=== PATIENT | female | born 1935 | race Caucasian/White ===

== ENCOUNTER 2020-07-26 15:23 | Inpatient (IN) ==
[2020-07-26] MEDS ORDERED: Naloxone 0.4 MG/ML INJ IVP PRN (23:49)
[2020-07-27 00:45] LABS: Basophils % 0.5 %; Eosinophils # 0.2 K/mcL (0.0-0.6); Hematocrit 32.2 % (35.3-44.9); Hemoglobin 9.8 g/dL (11.5-15.4); Immature Granulocytes % 0.3 % (0-4); Lymphocytes # 0.7 K/mcL (0.6-4.6); Lymphocytes % 8.5 %; Mean Corpuscular HGB Conc 30.4 g/dL (31.6-35.5); Mean Corpuscular Hemoglobin 29.4 pg (28.0-33.3); Mean Corpuscular Volume 96.7 fL (83.0-100.0); Mean Platelet Volume 11.5 fL (9.4-12.4); Monocytes # 1.1 K/mcL (0.0-1.3); Monocytes % 13.7 %; Neutrophils # 5.8 K/mcL (1.6-8.9); Nucleated Red Blood Cells 0.3 /100 WBC (0); Platelet Count 209 K/mcL (140-400); Red Blood Count 3.33 M/mcL (3.82-4.97); Red Cell Distribution Width 14.1 % (11.5-14.5); White Blood Count 7.7 K/mcL (4.3-11.1)
[2020-07-27 01:03] LABS: Albumin 3.1 g/dL (3.5-5.7); Albumin/Globulin Ratio 1.1 (1.1-2.2); Bilirubin,Total 0.5 mg/dL (0.3-1.0); Calcium 8.2 mg/dL (8.6-10.3); Globulin 2.9 g/dL (2.4-3.5); Potassium 3.8 mEq/L (3.5-5.1)
[2020-07-27] MEDS ORDERED: Furosemide 40 MG/4 ML VIAL IVP ONE (03:14)
[2020-07-27] MEDS ORDERED: Dextrose Gel 15 GM/37.5 ML TUBE PO PRN ×2 (07:05)
[2020-07-27] MEDS ORDERED: *HR* Dextrose 50 % in Water (Vial) 50 ML VIAL IVP PRN (07:05)
[2020-07-27] MEDS ORDERED: D5% in Water 1,000 ML IVC PRN (07:05)
[2020-07-27] MEDS: Insulin LISPRO 300 UNITS/3 ML VIAL SUBQ SCH ×5 (09:49→22:47)
[2020-07-27] MEDS: Apixaban 2.5 MG TABLET PO SCH ×2 (12:02→21:37)
[2020-07-27 17:42] LABS: Calcium 8.8 mg/dL (8.6-10.3); Potassium 4.1 mEq/L (3.5-5.1)
[2020-07-27] MEDS: Metoprolol 100 MG TABLET PO SCH (21:37)
[2020-07-28] MEDS: Acetaminophen 325 MG TABLET PO PRN ×2 (04:02→10:25)
[2020-07-28 05:10] LABS: Bacteria,Urine Few per hpf (None-Few); Bilirubin,Urine Negative (Negative); Blood,Urine Trace (Negative); Budding Yeast,Urine Many per hpf (None Seen); Clarity,Urine Turbid (Clear); Color,Urine Yellow (Yellow); Glucose,Urine (UA) Normal (Normal); Hyaline Casts,Urine Few per lpf (None Seen); Ketones,Urine Negative (Negative); Leukocyte Esterase,Urine Large (Negative); Mucus,Urine Few per lpf (None-Few); Nitrite,Urine Negative (Negative); PH,Urine 6.5 pH Units (5.0-8.0); Protein,Urine 100 mg/dL (Neg-Trace); RBC,Urine 15-30 per hpf (0-3); Specific Gravity,Urine 1.019 (1.010-1.025); Squamous Epithelial Cell,Urine Few per hpf (None-Few); Urobilinogen,Urine Normal (Normal); WBC,Urine TNTC per hpf (0-3)
[2020-07-28 05:21] LABS: VBG HCO3 37 mEq/L (21-27); VBG PCO2 62 mmHg (41-51); VBG PH 7.38 pH Units (7.32-7.42); VBG PO2 147 mmHg (25-50)
[2020-07-28 05:28] LABS: Hematocrit 32.8 % (35.3-44.9); Hemoglobin 9.9 g/dL (11.5-15.4); Mean Corpuscular HGB Conc 30.2 g/dL (31.6-35.5); Mean Corpuscular Hemoglobin 28.9 pg (28.0-33.3); Mean Corpuscular Volume 95.9 fL (83.0-100.0); Mean Platelet Volume 11.8 fL (9.4-12.4); Platelet Count 226 K/mcL (140-400); Red Blood Count 3.42 M/mcL (3.82-4.97); Red Cell Distribution Width 14.1 % (11.5-14.5); White Blood Count 10.2 K/mcL (4.3-11.1)
[2020-07-28 05:46] LABS: % Iron Saturation 6 % (15-50); Iron 27 mcg/dL (50-170); Transferrin 329 mg/dL (203-362)
[2020-07-28 05:59] LABS: Calcium 8.7 mg/dL (8.6-10.3); Thyroid Stimulating Hormone 7.68 mcIU/mL (0.340-5.600)
[2020-07-28 06:02] LABS: Ferritin 29 ng/mL (10-120)
[2020-07-28 06:09] LABS: Folate 12.7 ng/mL (3.0-16.0)
[2020-07-28] MEDS: Apixaban 2.5 MG TABLET PO SCH ×2 (08:27→22:01)
[2020-07-28] MEDS: Metoprolol 100 MG TABLET PO SCH ×2 (08:27→22:01)
[2020-07-28] MEDS: Insulin LISPRO 300 UNITS/3 ML VIAL SUBQ SCH ×4 (08:28→22:07)
[2020-07-28 08:41] LABS: C-Reactive Protein 122 mg/L (Less than 10)
[2020-07-28] MEDS ORDERED: Ferumoxytol 510 MG in 0.9 % Sodium Chloride 100 ML IVPB ONE (13:16)
[2020-07-29] MEDS: Insulin LISPRO 300 UNITS/3 ML VIAL SUBQ SCH ×4 (09:51→20:29)
[2020-07-29] MEDS: Apixaban 2.5 MG TABLET PO SCH ×2 (09:55→20:38)
[2020-07-29] MEDS: Metoprolol 100 MG TABLET PO SCH ×2 (09:55→20:38)
[2020-07-29] MEDS: Acetaminophen 325 MG TABLET PO PRN (16:33)
[2020-07-30 01:42] LABS: Hemoglobin 10.2 g/dL (11.5-15.4); Mean Corpuscular Hemoglobin 28.8 pg (28.0-33.3); Mean Platelet Volume 11.4 fL (9.4-12.4); Platelet Count 221 K/mcL (140-400); Red Blood Count 3.54 M/mcL (3.82-4.97); Red Cell Distribution Width 14.1 % (11.5-14.5); White Blood Count 6.8 K/mcL (4.3-11.1)
[2020-07-30 01:44] LABS: VBG HCO3 34 mEq/L (21-27); VBG PCO2 63 mmHg (41-51); VBG PH 7.34 pH Units (7.32-7.42); VBG PO2 161 mmHg (25-50)
[2020-07-30 02:04] LABS: Calcium 8.6 mg/dL (8.6-10.3); Magnesium 2.3 mg/dL (1.6-2.6); Potassium 4.8 mEq/L (3.5-5.1)
[2020-07-30] MEDS: Insulin LISPRO 300 UNITS/3 ML VIAL SUBQ SCH ×4 (07:25→23:41)
[2020-07-30] MEDS: Apixaban 2.5 MG TABLET PO SCH ×3 (07:36→23:36)
[2020-07-30] MEDS: Metoprolol 100 MG TABLET PO SCH ×3 (07:36→23:36)
[2020-07-30] MEDS ORDERED: 0.9 % Sodium Chloride 1,000 ML IVC SCH ×2 (07:45→16:15)
[2020-07-30] MEDS: Thiamine (B-1) 100 MG in 0.9 % Sodium Chloride 50 ML IVPB SCH (11:56)
[2020-07-30] MEDS: Thiamine (B-1) 100 MG TABLET PO SCH (11:56)
[2020-07-30 14:51] LABS: Sodium, Urine 16.4 mEq/L
[2020-07-30 18:58] LABS: Calcium 8.7 mg/dL (8.6-10.3); Potassium 4.7 mEq/L (3.5-5.1)
[2020-07-31] MEDS: 0.9 % Sodium Chloride 1,000 ML IVC SCH (01:56)
[2020-07-31 02:29] LABS: Calcium 8.7 mg/dL (8.6-10.3); Potassium 5.3 mEq/L (3.5-5.1)
[2020-07-31] MEDS ORDERED: *HR* LORazepam 2 MG/ML VIAL IVP ONE (04:59)
[2020-07-31] MEDS: Apixaban 2.5 MG TABLET PO SCH ×2 (10:34→20:10)
[2020-07-31] MEDS: Insulin LISPRO 300 UNITS/3 ML VIAL SUBQ SCH ×4 (10:34→20:10)
[2020-07-31] MEDS: Thiamine (B-1) 100 MG TABLET PO SCH (10:35)
[2020-07-31] MEDS: Metoprolol 100 MG TABLET PO SCH ×2 (10:35→20:10)
[2020-07-31] MEDS ORDERED: Furosemide 40 MG/4 ML VIAL IVP ONE (10:55)
[2020-07-31] MEDS: Thiamine (B-1) 100 MG in 0.9 % Sodium Chloride 50 ML IVPB SCH (11:10)
[2020-07-31 19:58] LABS: ABG Base Excess 5 mEq/L (-2 to 3); ABG HCO3 35 mEq/L (21-27); ABG Oxygen Saturation 90 % (95-98); ABG PCO2 81 mmHg (35-45); ABG PH 7.25 pH Units (7.32-7.45); ABG PO2 73 mmHg (85-104); ABG TCO2 38 mEq/L (20-26)
[2020-08-01 00:40] LABS: Hematocrit 32.4 % (35.3-44.9); Hemoglobin 9.7 g/dL (11.5-15.4); Mean Corpuscular HGB Conc 29.9 g/dL (31.6-35.5); Mean Corpuscular Hemoglobin 29.4 pg (28.0-33.3); Mean Corpuscular Volume 98.2 fL (83.0-100.0); Mean Platelet Volume 11.1 fL (9.4-12.4); Platelet Count 215 K/mcL (140-400); Red Cell Distribution Width 14.6 % (11.5-14.5)
[2020-08-01 00:57] LABS: Calcium 8.5 mg/dL (8.6-10.3); Magnesium 2.3 mg/dL (1.6-2.6); Potassium 4.5 mEq/L (3.5-5.1)
[2020-08-01 08:07] LABS: ABG Base Excess 8 mEq/L (-2 to 3); ABG HCO3 36 mEq/L (21-27); ABG Oxygen Saturation 93 % (95-98); ABG PCO2 66 mmHg (35-45); ABG PH 7.35 pH Units (7.32-7.45); ABG PO2 73 mmHg (85-104); ABG TCO2 38 mEq/L (20-26)
[2020-08-01] MEDS: Metoprolol 100 MG TABLET PO SCH ×2 (09:23→19:58)
[2020-08-01] MEDS: Insulin LISPRO 300 UNITS/3 ML VIAL SUBQ SCH ×4 (09:23→19:50)
[2020-08-01] MEDS: Apixaban 2.5 MG TABLET PO SCH ×2 (09:23→19:58)
[2020-08-01] MEDS: Thiamine (B-1) 100 MG in 0.9 % Sodium Chloride 50 ML IVPB SCH (09:31)
[2020-08-01] MEDS ORDERED: *HR* Metoprolol 5 MG/5 ML VIAL IVP ONE (11:23)
[2020-08-01] MEDS: Fluconazole 200 MG/100 ML 100 MG/50 ML BAG IVPB SCH (17:19)
[2020-08-01] MEDS ORDERED: Cyanocobalamin (B-12) 1,000 MCG/ML VIAL SQ ONE (19:07)
[2020-08-01] MEDS ORDERED: Iron Sucrose Complex 200 MG in 0.9 % Sodium Chloride 100 ML IVPB ONE (19:07)
[2020-08-01] MEDS ORDERED: Melatonin 3 MG TABLET PO PRN (20:27)
[2020-08-01] MEDS: Patient Taking Own Medication 1 EACH PO SCH (21:19)
[2020-08-01] MEDS ORDERED: *HR* Metoprolol 5 MG/5 ML VIAL IVP PRN (23:25)
[2020-08-02 02:32] LABS: Basophils % 0.3 %; Eosinophils # 0.1 K/mcL (0.0-0.6); Eosinophils % 0.8 %; Hematocrit 33.8 % (35.3-44.9); Hemoglobin 10.3 g/dL (11.5-15.4); Immature Granulocytes % 0.5 % (0-4); Lymphocytes # 0.3 K/mcL (0.6-4.6); Lymphocytes % 5.3 %; Mean Corpuscular HGB Conc 30.5 g/dL (31.6-35.5); Mean Corpuscular Hemoglobin 29.3 pg (28.0-33.3); Mean Corpuscular Volume 96.3 fL (83.0-100.0); Mean Platelet Volume 10.9 fL (9.4-12.4); Monocytes # 0.9 K/mcL (0.0-1.3); Monocytes % 15.1 %; Neutrophils # 4.8 K/mcL (1.6-8.9); Nucleated Red Blood Cells 0.8 /100 WBC (0); Platelet Count 213 K/mcL (140-400); Red Blood Count 3.51 M/mcL (3.82-4.97); Red Cell Distribution Width 14.7 % (11.5-14.5); White Blood Count 6.2 K/mcL (4.3-11.1)
[2020-08-02 02:33] LABS: VBG HCO3 36 mEq/L (21-27); VBG PCO2 70 mmHg (41-51); VBG PH 7.32 pH Units (7.32-7.42); VBG PO2 162 mmHg (25-50)
[2020-08-02 02:51] LABS: Calcium 8.9 mg/dL (8.6-10.3); Magnesium 2.2 mg/dL (1.6-2.6); Potassium 4.2 mEq/L (3.5-5.1)
[2020-08-02] MEDS: Insulin LISPRO 300 UNITS/3 ML VIAL SUBQ SCH ×4 (08:22→20:53)
[2020-08-02] MEDS: Apixaban 2.5 MG TABLET PO SCH (08:55)
[2020-08-02] MEDS: Thiamine (B-1) 100 MG TABLET PO SCH (08:55)
[2020-08-02] MEDS: Metoprolol 100 MG TABLET PO SCH ×2 (08:55→19:52)
[2020-08-02] MEDS: Patient Taking Own Medication 1 EACH PO SCH ×2 (08:56→15:03)
[2020-08-02] MEDS: Fluconazole 200 MG/100 ML 100 MG/50 ML BAG IVPB SCH (08:56)
[2020-08-02] MEDS ORDERED: DilTIAZem CD (24hr) 120 MG CAP.ER.24H PO SCH (09:00)
[2020-08-02 09:14] LABS: Estimated Average Glucose 171 mg/dl; Hemoglobin A1C 7.6 %
[2020-08-02] MEDS ORDERED: Perflutren Lipid Microsphere 1.3 ML in 0.9 % Sodium Chloride 8.7 ML IVP PRN (11:37)
[2020-08-03 01:13] LABS: Basophils % 0.3 %; Eosinophils # 0.1 K/mcL (0.0-0.6); Eosinophils % 1.4 %; Hematocrit 31.5 % (35.3-44.9); Hemoglobin 9.7 g/dL (11.5-15.4); Immature Granulocytes % 0.3 % (0-4); Lymphocytes # 0.7 K/mcL (0.6-4.6); Lymphocytes % 12.3 %; Mean Corpuscular HGB Conc 30.8 g/dL (31.6-35.5); Mean Corpuscular Hemoglobin 29.8 pg (28.0-33.3); Mean Corpuscular Volume 96.9 fL (83.0-100.0); Mean Platelet Volume 10.8 fL (9.4-12.4); Monocytes # 0.9 K/mcL (0.0-1.3); Monocytes % 15.9 %; Neutrophils # 4.1 K/mcL (1.6-8.9); Nucleated Red Blood Cells 0.5 /100 WBC (0); Platelet Count 182 K/mcL (140-400); Red Blood Count 3.25 M/mcL (3.82-4.97); Segmented Neutrophils % 69.8 %; White Blood Count 5.9 K/mcL (4.3-11.1)
[2020-08-03 01:24] LABS: INR 1.4; Prothrombin Time 16.4 Seconds (9.4-12.1)
[2020-08-03 01:36] LABS: Calcium 8.4 mg/dL (8.6-10.3); Potassium 4.1 mEq/L (3.5-5.1)
[2020-08-03] MEDS: Insulin LISPRO 300 UNITS/3 ML VIAL SUBQ SCH ×3 (09:25→17:43)
[2020-08-03] MEDS: Metoprolol 100 MG TABLET PO SCH (10:33)
[2020-08-03] MEDS: Fluconazole 200 MG/100 ML 100 MG/50 ML BAG IVPB SCH (10:33)
[2020-08-03] MEDS: Thiamine (B-1) 100 MG TABLET PO SCH (10:33)
[2020-08-03] MEDS: Ipratropium/Albuterol Neb 3 ML IH SCH ×2 (14:13→15:41)
[2020-08-03 15:13] VITALS: BP 124/58
[2020-08-03] MEDS: 0.9 % Sodium Chloride 1,000 ML IVC SCH (15:33)
[2020-08-03 16:29] LABS: Total Protein,Pleural Fluid 2.2 g/dL
[2020-08-03 16:32] LABS: Adenovirus Not Detected (Not Detect); Bordetella Pertussis Not Detected (Not Detect); Chlamydophila pneumoniae Not Detected (Not Detect); Coronavirus 229E Not Detected (Not Detect); Coronavirus HKU1 Not Detected (Not Detect); Coronavirus NL63 Not Detected (Not Detect); Coronavirus OC43 Not Detected (Not Detect); Human Metapneumovirus Not Detected (Not Detect); Human Rhinovirus/Enterovirus Not Detected (Not Detect); Influenza A Subtype 2009 H1 Not Detected (Not Detect); Influenza B Not Detected (Not Detect); Mycoplasma pneumoniae Not Detected (Not Detect); Parainfluenza Virus 1 Not Detected (Not Detect); Parainfluenza Virus 2 Not Detected (Not Detect); Parainfluenza Virus 3 Not Detected (Not Detect); Parainfluenza Virus 4 Not Detected (Not Detect); Respiratory Syncytial Virus Not Detected (Not Detect); SARS-CoV-2 Not Detected (Not Detect)
[2020-08-03 17:11] LABS: RBC,Pleural Fluid < 2000 RBC/mcL
[2020-08-03 18:16] LABS: Appearance of Pleural Fl Clear (Clear)
[2020-08-03 18:18] LABS: Basophils,Pleural Fluid 0 %; Eosinophils,Pleural Fluid 0 %
[2020-08-04 02:24] LABS: Alpha 2 Globulin (PEP) 0.91 g/dL (0.48-1.05); Beta Globulin (PEP) 0.99 g/dL (0.48-1.10)
[2020-08-04 11:16] LABS: IFE Reflexed NOT DONE
[2020-08-06 14:23] LABS: Fluid Source for Albumin PLEURAL FLUID
== END 2020-08-03 19:59 | disposition short-term general hospital (02) | DRG 314 ==
LOC: 2NENU → SUATTDRO 22:53
PROVIDERS: ADMIT Pharmacist; ATTEND Pharmacist